=== PATIENT | female | born 1945 | race Caucasian/White ===

== ENCOUNTER → 2018-12-23 | Outpatient (CLI) | payer OTHER ==
[~2018-12-23] MED LIST: ALIGN4 MG PO; CALCIUM 600 +1 EAC1 PO; CELEXA 20 MG TA20 M1 PO; CELEXA 20 MG TA20 MG PO; HYZAAR 100-251 EACH PO; NABUMETONE 750750 M1 PO; NORCO 10-325 T1 EACH; OMEGA-31000 MG PO; OMEPRAZOLE40 MG PO; ROBAXIN 750 MG750 M1; SIMVASTATIN40 MG PO; VITAMIN B-12100 MCG PO; VITAMIN E400 UNIT PO
== END ==
LOC: ULTRA 16:24
DX: M79.661 Pain in right lower leg (principal)

== ENCOUNTER → 2018-12-23 | Outpatient (CLI) | payer OTHER | LOC: RAD 14:35 | DX: Z12.31 Encounter for screening mammogram for malignant neoplasm of breast (principal) ==

== ENCOUNTER → 2018-12-29 | Outpatient (CLI) | payer OTHER | LOC: ULTRA 01:55 | DX: N60.01 Solitary cyst of right breast (principal) ==